=== PATIENT | male | born 1960 | race Two or more races ===

== ENCOUNTER 2021-09-20 21:52 | Inpatient (IN) | payer OTHER ==
[2021-09-20] MEDS ORDERED: ONDANSETRON 4 MG/2 ML VIAL IVPUSH ONE (22:01)
[2021-09-20] MEDS ORDERED: FAMOTIDINE 20 MG/50 ML IVPB 20 MG/50 ML MG IVPB ONE ×2 (22:01→22:12)
[2021-09-20] MEDS ORDERED: LACTATED RINGERS SOLUTION 1,000 ML/1,000 ML INFUS.BAG IV STA (22:01)
[2021-09-20] MEDS ORDERED: ONDANSETRON 4 MG/2 ML VIAL ONE (22:12)
[2021-09-20 22:48] LABS: MCH 37.8 pg (25.7-33.7); MEAN CELL VOLUME 81.9 fl (80-96); MEAN PLT VOLUME 9.8 fl (7.5-11.1); RBC 5.79 10^6/uL (4.00-5.60); RDW 15.1 % (11.9-15.9); WHITE BLOOD COUNT 13.2 10^3/uL (4.0-10.8)
[2021-09-20] MEDS ORDERED: ACETAMINOPHEN 1000 MG/100 ML BAG IVPB ONE (22:58)
[2021-09-20 23:00] LABS: ALBUMIN 4.8 g/dl (3.4-5.0); ALK PHOS 52 U/L (45-117); ANION GAP 16 MMOL/L (8-16); CALCIUM 7.5 mg/dl (8.5-10); CHLORIDE 86 mmol/L (98-107); CO2 21 mmol/L (21-32); CREATININE 0.7 mg/dl (0.55-1.3); SODIUM 123 mmol/L (136-145); TOT PROT 4.9 g/dl (6.4-8.2)
[2021-09-20 23:03] LABS: GLUCOSE,RANDOM 371 mg/dl (74-106)
[2021-09-20] MEDS ORDERED: ACETAMINOPHEN INJECTION 100 ML IVPB ONE (23:07)
[2021-09-20 23:10] LABS: MCHC 46.2 g/dl (32.0-35.9)
[2021-09-20 23:11] LABS: HEMATOCRIT 45.3 % (35.4-49); HEMOGLOBIN 16.9 G/dL (11.7-16.9)
[2021-09-20 23:23] LABS: PLATELET ESTIMATE ADEQUATE
[2021-09-21 02:17] LABS: EPI CELLS 15 /uL (0-25.1); HYALINE CASTS 6 /uL (0-3.1); URINE APPEARANCE CLEAR; URINE BACTERIA 2 /uL (0-1359); URINE BILIRUBIN NEGATIVE (NEGATIVE); URINE COLOR YELLOW; URINE GLUCOSE (UA) 2+ (NEGATIVE); URINE KETONE 3+ (NEGATIVE); URINE LEUK ESTERASE NEGATIVE (NEGATIVE); URINE NITRITE NEGATIVE (NEGATIVE); URINE PROTEIN 2+ (NEGATIVE); URINE RBC 20 /uL (0-23.9); URINE UROBILINOGEN 0.2 mg/dL (0.2-1.0); URINE WBC 7 /uL (0-25.8)
[2021-09-21 02:34] LABS: LACTIC ACID 2.7 mmol/L (0.4-2.0)
[2021-09-21 02:35] LABS: LIPASE 5567 U/L (73-393)
[2021-09-21] MEDS ORDERED: morphine CARPU-JECT 8 MG/1 ML DISP.SYRIN IVPUSH ONE (02:51)
[2021-09-21] MEDS ORDERED: LACTATED RINGERS SOLUTION 1,000 ML/1,000 ML INFUS.BAG IV STA (02:51)
[2021-09-21] MEDS ORDERED: SODIUM CHLORIDE 1,000 ML IV STA (02:52)
[2021-09-21 02:53] LABS: ACTIVATED PTT > 400.0 SECONDS (25.2-36.5); PROTHROMBIN TIME (PATIENT) > 230.00 SEC (9.7-13.0)
[2021-09-21 02:54] LABS: INR > 15.00 (0.83-1.09)
[2021-09-21] MEDS ORDERED: ONDANSETRON 4 MG/2 ML VIAL IVPUSH ONE (02:55)
[2021-09-21] MEDS ORDERED: morphine SULFATE 4 MG/ML VIAL ONE ×2 (02:57→07:17)
[2021-09-21] MEDS ORDERED: ONDANSETRON 4 MG/2 ML VIAL ONE ×2 (02:57→07:17)
[2021-09-21] MEDS ORDERED: INSULIN REGULAR HUMAN 100 UNITS/ML *VIAL* (FOR IVP) IVPUSH ONE (03:48)
[2021-09-21] MEDS ORDERED: DEXTROSE 50%-WATER - 25 GM/50 ML VIAL IVPUSH PRN ×2 (04:21→04:57)
[2021-09-21] MEDS ORDERED: morphine SULFATE 4 MG/ML VIAL IVPUSH PRN (04:56)
[2021-09-21] MEDS ORDERED: D5-NS + 40 MEQ KCL - 40 MEQ/1,000 ML INFUS.BAG IV SCH ×3 (05:00→17:13)
[2021-09-21] MEDS ORDERED: INSULIN REGULAR HUMAN 100 UNITS/ML *VIAL ONE (05:20)
[2021-09-21] MEDS: INSULIN REGULAR 100 UNITS in SODIUM CHLORIDE 99 ML IVPB SCH (05:32)
[2021-09-21] MEDS ORDERED: ONDANSETRON 4 MG/2 ML VIAL IVPUSH PRN (07:00)
[2021-09-21 07:11] LABS: TRIGLYCERIDES > 4000 mg/dL (0-150)
[2021-09-21 08:30] LABS: ALBUMIN 3.1 g/dl (3.4-5.0); ALK PHOS 64 U/L (45-117); ANION GAP 14 MMOL/L (8-16); BILIRUBIN,TOTAL 3.1 mg/dL (0.2-1); BLOOD UREA NITROGEN 12.8 mg/dL (7-18); CHLORIDE 91 mmol/L (98-107); CO2 20 mmol/L (21-32); CREATININE 1.7 mg/dL (0.55-1.3); GLUCOSE,RANDOM 567 mg/dL (74-106); SODIUM 125 mmol/L (136-145); TOT PROT 8.5 g/dl (6.4-8.2)
[2021-09-21 08:53] LABS: CREATININE 0.8 mg/dl (0.55-1.3); MAGNESIUM 2.4 mg/dL (1.8-2.4); PHOSPHOROUS 2.2 mg/dl (2.5-4.9)
[2021-09-21 09:05] LABS: LDL CHOLESTEROL (ONLY SJRH) 199 mg/dL (5-100)
[2021-09-21] MEDS ORDERED: HYDROmorphone HCL CARPU-JECT 1 MG/1 ML DISP.SYRIN IVPUSH ONE (09:09)
[2021-09-21] MEDS ORDERED: HYDROmorphone HCL/PF 1 MG/ML VIAL ONE (09:10)
[2021-09-21 09:16] LABS: CHOLESTEROL 299 mg/dL (50-200); HDL CHOLESTEROL 27 mg/dL (40-60)
[2021-09-21 09:59] LABS: CALCIUM 6.4 mg/dl (8.5-10)
[2021-09-21] MEDS: HYDROmorphone HCl 2 MG/ML VIAL IVPB PRN ×2 (12:51→17:05)
[2021-09-21] MEDS: MUPIROCIN 2% TOPICAL OINTMENT FOR DECOLONIZATION NS SCH ×2 (13:08→21:21)
[2021-09-21] MEDS ORDERED: SODIUM CHLORIDE 1,000 ML IV SCH (13:15)
[2021-09-21] MEDS ORDERED: PANTOPRAZOLE SODIUM 40 MG VIAL IVPUSH ONE (13:18)
[2021-09-21] MEDS: HEPARIN NA (PORCINE) 5,000 UNITS/ML 1ML VIAL SQ SCH ×2 (13:45→21:20)
[2021-09-21] MEDS ORDERED: DEXTROSE 5%-NORMAL SALINE 1,000 ML IV SCH (17:00)
[2021-09-21] MEDS ORDERED: MELATONIN 5 MG TABLETS PO PRN (18:28)
[2021-09-21 18:35] LABS: CHLORIDE 106 mmol/L (98-107); SODIUM 138 mmol/L (136-145)
[2021-09-21 18:37] LABS: ANION GAP 9 MMOL/L (8-16); BLOOD UREA NITROGEN 12.6 mg/dL (7-18); CO2 22 mmol/L (21-32); GLUCOSE,RANDOM 220 mg/dL (74-106)
[2021-09-21 18:41] LABS: CREATININE 1.1 mg/dL (0.55-1.3)
[2021-09-21] MEDS ORDERED: D5-LR+20 MEQ KCL - 20 MEQ/1,000 ML INFUS.BAG IV SCH ×2 (19:15→19:30)
[2021-09-21 19:47] LABS: CALCIUM 5.9 mg/dL (8.5-10.1); TRIGLYCERIDES 1617 mg/dL (0-150)
[2021-09-21] MEDS ORDERED: CALCIUM GLUC IN NACL, ISO-OSM 1 GM/50 ML BAG IVPB ONE (20:02)
[2021-09-21] MEDS: D5-LR+20 MEQ KCL - 20 MEQ/1,000 ML INFUS.BAG IV SCH (20:05)
[2021-09-21] MEDS: HYDROmorphone HCl 2 MG/ML VIAL IVPUSH PRN (20:06)
[2021-09-21] MEDS: CHLORHEXIDINE GLUCONATE 4% CLEANSER FOR DECOLONIZATION TP SCH (21:20)
[2021-09-21 23:34] LABS: CHLORIDE 108 mmol/L (98-107); SODIUM 138 mmol/L (136-145)
[2021-09-21 23:36] LABS: ANION GAP 8 MMOL/L (8-16); BLOOD UREA NITROGEN 15.9 mg/dL (7-18); CO2 22 mmol/L (21-32); GLUCOSE,RANDOM 194 mg/dL (74-106); MAGNESIUM 1.6 mg/dL (1.8-2.4)
[2021-09-21 23:52] LABS: CALCIUM 6.3 mg/dL (8.5-10.1)
[2021-09-22] MEDS ORDERED: CALCIUM GLUC IN NACL, ISO-OSM 1 GM/50 ML BAG IVPB ONE ×2 (00:03→00:31)
[2021-09-22] MEDS ORDERED: MAGNESIUM 2GM/50ML STERILE WATER IVPB IVPB ONE (00:15)
[2021-09-22] MEDS: HYDROmorphone HCl 2 MG/ML VIAL IVPUSH PRN ×4 (02:49→20:05)
[2021-09-22] MEDS: D5-LR+20 MEQ KCL - 20 MEQ/1,000 ML INFUS.BAG IV SCH ×2 (04:14→22:10)
[2021-09-22] MEDS: INSULIN REGULAR 100 UNITS in SODIUM CHLORIDE 99 ML IVPB SCH ×2 (05:22→14:59)
[2021-09-22] MEDS: HEPARIN NA (PORCINE) 5,000 UNITS/ML 1ML VIAL SQ SCH ×3 (05:22→22:10)
[2021-09-22 06:29] LABS: HEMATOCRIT 43.5 % (35.4-49); HEMOGLOBIN 14.9 GM/dL (11.7-16.9); MCH 28.6 pg (25.7-33.7); MCHC 34.3 g/dl (32.0-35.9); MEAN CELL VOLUME 83.5 fl (80-96); MEAN PLT VOLUME 9.2 fl (7.5-11.1); PLATELET COUNT 155 10^3/uL (134-434); RBC 5.21 M/mm3 (4.00-5.60); RDW 15.4 % (11.9-15.9); WHITE BLOOD COUNT 8.9 K/mm3 (4.0-10.0)
[2021-09-22 06:47] LABS: CHLORIDE 108 mmol/L (98-107); SODIUM 139 mmol/L (136-145)
[2021-09-22 06:49] LABS: LIPASE 863 U/L (73-393)
[2021-09-22 06:50] LABS: ALBUMIN 2.5 g/dl (3.4-5.0); ANION GAP 6 MMOL/L (8-16); BLOOD UREA NITROGEN 14.1 mg/dL (7-18); CO2 25 mmol/L (21-32); GLUCOSE,RANDOM 182 mg/dL (74-106); MAGNESIUM 2.1 mg/dL (1.8-2.4)
[2021-09-22 06:52] LABS: TRIGLYCERIDES 908 mg/dL (0-150)
[2021-09-22 06:53] LABS: PHOSPHOROUS 1.3 mg/dL (2.5-4.9); SGOT/AST 30 U/L (15-37)
[2021-09-22 06:54] LABS: BILIRUBIN,TOTAL 0.6 mg/dL (0.2-1)
[2021-09-22 06:55] LABS: ALK PHOS 44 U/L (45-117)
[2021-09-22 07:09] LABS: INR 1.44 (0.83-1.09); PROTHROMBIN TIME (PATIENT) 16.6 SEC (9.7-13.0)
[2021-09-22 07:24] LABS: CALCIUM 6.9 mg/dL (8.5-10.1); SGPT/ALT 29 U/L (13-61); TOT PROT 5.8 g/dl (6.4-8.2)
[2021-09-22] MEDS ORDERED: SODIUM PHOSPHATE - 40 MM in SODIUM CHLORIDE 500 ML IVPB ONE (08:00)
[2021-09-22] MEDS: PANTOPRAZOLE SODIUM 40 MG VIAL IVPUSH SCH (10:36)
[2021-09-22] MEDS: MUPIROCIN 2% TOPICAL OINTMENT FOR DECOLONIZATION NS SCH ×2 (10:36→22:10)
[2021-09-22] MEDS: ACETAMINOPHEN 1000 MG/100 ML BAG IVPB PRN (11:32)
[2021-09-22 11:59] LABS: EPI CELLS 7 /uL (0-25.1); HYALINE CASTS 5 /uL (0-3.1); PH,URINE 5.5 (5.0-8.0); URINE APPEARANCE CLEAR; URINE BACTERIA 8 /uL (0-1359); URINE BILIRUBIN NEGATIVE (NEGATIVE); URINE COLOR DK YELLOW; URINE GLUCOSE (UA) 1+ (NEGATIVE); URINE KETONE 1+ (NEGATIVE); URINE LEUK ESTERASE NEGATIVE (NEGATIVE); URINE NITRITE NEGATIVE (NEGATIVE); URINE PROTEIN 2+ (NEGATIVE); URINE UROBILINOGEN 0.2 mg/dL (0.2-1.0); URINE WBC 9 /uL (0-25.8)
[2021-09-22 12:02] LABS: URINE RBC 30.3 /uL (0-23.9)
[2021-09-22 12:19] LABS: COCAINE, UR NEGATIVE (NEGATIVE); METHADONE, UR NEGATIVE (NEGATIVE); OPIATES, URI POSITIVE (NEGATIVE); PHENCYCLIDINE,URINE NEGATIVE (NEGATIVE); URINE AMPHETAMINES NEGATIVE (NEGATIVE); URINE BARBITURATES NEGATIVE (NEGATIVE); URINE BENZODIAZEPINES NEGATIVE (NEGATIVE)
[2021-09-22] MEDS ORDERED: D5-LR+20 MEQ KCL - 20 MEQ/1,000 ML INFUS.BAG IV SCH ×2 (16:00→21:06)
[2021-09-22] MEDS ORDERED: DEXTROSE 50%-WATER - 25 GM/50 ML VIAL IVPUSH PRN (18:08)
[2021-09-22 18:41] LABS: CALCIUM 7.4 mg/dL (8.5-10.1)
[2021-09-22 18:42] LABS: MAGNESIUM 2.3 mg/dL (1.8-2.4)
[2021-09-22 18:45] LABS: PHOSPHOROUS 2.3 mg/dL (2.5-4.9)
[2021-09-22] MEDS ORDERED: NAPH,MB-DB/K PH,MBDB POWDER PACKET PO ONE ×2 (18:47→21:01)
[2021-09-22] MEDS ORDERED: DEXTROSE 50%-WATER 25 GM/50 ML DISP.SYRIN ONE (21:08)
[2021-09-22] MEDS: CHLORHEXIDINE GLUCONATE 4% CLEANSER FOR DECOLONIZATION TP SCH (22:11)
[2021-09-23] MEDS: D5-LR+20 MEQ KCL - 20 MEQ/1,000 ML INFUS.BAG IV SCH ×5 (02:14→22:24)
[2021-09-23] MEDS: INSULIN REGULAR 100 UNITS in SODIUM CHLORIDE 99 ML IVPB SCH ×2 (05:39→08:12)
[2021-09-23] MEDS: HEPARIN NA (PORCINE) 5,000 UNITS/ML 1ML VIAL SQ SCH ×3 (05:40→21:44)
[2021-09-23] MEDS: HYDROmorphone HCl 2 MG/ML VIAL IVPUSH PRN (06:57)
[2021-09-23 07:49] LABS: HEMATOCRIT 38.1 % (35.4-49); HEMOGLOBIN 12.6 GM/dL (11.7-16.9); MCH 27.9 pg (25.7-33.7); MCHC 33.2 g/dl (32.0-35.9); MEAN CELL VOLUME 83.8 fl (80-96); MEAN PLT VOLUME 9.3 fl (7.5-11.1); PLATELET COUNT 141 10^3/uL (134-434); RBC 4.54 M/mm3 (4.00-5.60); RDW 15.3 % (11.9-15.9)
[2021-09-23 08:02] LABS: CALCIUM 7.7 mg/dL (8.5-10.1)
[2021-09-23 08:03] LABS: BLOOD UREA NITROGEN 8.2 mg/dL (7-18); MAGNESIUM 2.1 mg/dL (1.8-2.4)
[2021-09-23 08:04] LABS: CREATININE 0.7 mg/dL (0.55-1.3)
[2021-09-23 08:05] LABS: PHOSPHOROUS 1.4 mg/dL (2.5-4.9)
[2021-09-23] MEDS: PANTOPRAZOLE SODIUM 40 MG VIAL IVPUSH SCH (09:08)
[2021-09-23] MEDS: MUPIROCIN 2% TOPICAL OINTMENT FOR DECOLONIZATION NS SCH ×2 (09:09→21:38)
[2021-09-23] MEDS ORDERED: SODIUM PHOSPHATE - 30 MM in SODIUM CHLORIDE 250 ML IVPB ONE (09:10)
[2021-09-23] MEDS ORDERED: POTASSIUM PHOSPHATE 30 MM in SODIUM CHLORIDE 250 ML IVPB ONE (09:13)
[2021-09-23] MEDS ORDERED: FENOFIBRIC ACID 135 MG CAP PO SCH ×2 (12:00→13:45)
[2021-09-23] MEDS: INSULIN SLIDING SCALE (NOVOLOG) 1 VIAL SQ SCH ×2 (17:08→21:45)
[2021-09-23] MEDS: ACETAMINOPHEN 1000 MG/100 ML BAG IVPB PRN (20:14)
[2021-09-23] MEDS: CHLORHEXIDINE GLUCONATE 4% CLEANSER FOR DECOLONIZATION TP SCH (21:44)
[2021-09-23] MEDS ORDERED: ATORVASTATIN CA 40 MG TABLET (FP) PO SCH (22:00)
[2021-09-23] MEDS ORDERED: DEXTROSE 50%-WATER - 25 GM/50 ML VIAL IVPUSH PRN (22:08)
[2021-09-23] MEDS: MELATONIN 5 MG TABLETS PO PRN (22:29)
[2021-09-24] MEDS: ACETAMINOPHEN 1000 MG/100 ML BAG IVPB PRN ×4 (01:02→21:09)
[2021-09-24] MEDS: D5-LR+20 MEQ KCL - 20 MEQ/1,000 ML INFUS.BAG IV SCH ×4 (01:03→11:08)
[2021-09-24] MEDS: ONDANSETRON 4 MG/2 ML VIAL IVPUSH PRN ×2 (04:09→08:04)
[2021-09-24] MEDS: HEPARIN NA (PORCINE) 5,000 UNITS/ML 1ML VIAL SQ SCH ×3 (05:58→21:09)
[2021-09-24] MEDS: INSULIN SLIDING SCALE (NOVOLOG) 1 VIAL SQ SCH ×4 (06:01→23:49)
[2021-09-24 09:01] LABS: BASO % 0.2 % (0-2.0); EOS % 0.6 % (0-4.5); HEMATOCRIT 35.9 % (35.4-49); HEMOGLOBIN 11.9 GM/dL (11.7-16.9); LYMPH % 9.7 % (8-40); MCH 28.1 pg (25.7-33.7); MCHC 33.3 g/dl (32.0-35.9); MEAN CELL VOLUME 84.6 fl (80-96); MEAN PLT VOLUME 8.8 fl (7.5-11.1); MONO % 5.5 % (3.8-10.2); PLATELET COUNT 156 10^3/uL (134-434); RBC 4.24 M/mm3 (4.00-5.60); WHITE BLOOD COUNT 9.9 K/mm3 (4.0-10.0)
[2021-09-24 09:21] LABS: CALCIUM 8.2 mg/dL (8.5-10.1)
[2021-09-24 09:22] LABS: ALBUMIN 2.4 g/dl (3.4-5.0); BLOOD UREA NITROGEN 7.4 mg/dL (7-18)
[2021-09-24] MEDS: FENOFIBRIC ACID 135 MG CAP PO SCH (09:23)
[2021-09-24] MEDS: PANTOPRAZOLE SODIUM 40 MG VIAL IVPUSH SCH (09:24)
[2021-09-24 09:25] LABS: CREATININE 0.7 mg/dL (0.55-1.3)
[2021-09-24 09:26] LABS: PHOSPHOROUS 2.5 mg/dL (2.5-4.9)
[2021-09-24 09:28] LABS: BILIRUBIN,TOTAL 0.9 mg/dL (0.2-1); TOT PROT 5.3 g/dl (6.4-8.2)
[2021-09-24] MEDS ORDERED: MUPIROCIN 2% TOPICAL OINTMENT FOR DECOLONIZATION NS SCH (10:00)
[2021-09-24] MEDS: SIMETHICONE 80 MG TAB.CHEW (FP) PO PRN ×2 (13:15→18:00)
[2021-09-24] MEDS: ATORVASTATIN CA 40 MG TABLET (FP) PO SCH (21:09)
[2021-09-24] MEDS ORDERED: CHLORHEXIDINE GLUCONATE 4% CLEANSER FOR DECOLONIZATION TP SCH (22:00)
[2021-09-25] MEDS: HEPARIN NA (PORCINE) 5,000 UNITS/ML 1ML VIAL SQ SCH ×3 (06:07→21:11)
[2021-09-25] MEDS: INSULIN SLIDING SCALE (NOVOLOG) 1 VIAL SQ SCH ×4 (06:08→21:11)
[2021-09-25 08:17] LABS: HEMATOCRIT 34.9 % (35.4-49); HEMOGLOBIN 11.9 GM/dL (11.7-16.9); MCH 28.3 pg (25.7-33.7); MEAN CELL VOLUME 83.2 fl (80-96); MEAN PLT VOLUME 8.4 fl (7.5-11.1); PLATELET COUNT 170 10^3/uL (134-434); RDW 15.2 % (11.9-15.9); WHITE BLOOD COUNT 8.9 K/mm3 (4.0-10.0)
[2021-09-25 08:43] LABS: ALBUMIN 2.6 g/dl (3.4-5.0); BLOOD UREA NITROGEN 12.6 mg/dL (7-18); CALCIUM 8.4 mg/dL (8.5-10.1); MAGNESIUM 1.9 mg/dL (1.8-2.4)
[2021-09-25 08:46] LABS: CREATININE 0.7 mg/dL (0.55-1.3)
[2021-09-25 08:48] LABS: BILIRUBIN,TOTAL 1.2 mg/dL (0.2-1); TOT PROT 5.7 g/dl (6.4-8.2)
[2021-09-25] MEDS: PANTOPRAZOLE SODIUM 40 MG VIAL IVPUSH SCH (10:12)
[2021-09-25] MEDS: FENOFIBRIC ACID 135 MG CAP PO SCH (10:12)
[2021-09-25 10:59] LABS: ANISOCYTOSIS 0; MACROCYTOSIS 0; PLATELET ESTIMATE NORMAL
[2021-09-25] MEDS: SIMETHICONE 80 MG TAB.CHEW (FP) PO PRN (21:01)
[2021-09-25] MEDS: ATORVASTATIN CA 40 MG TABLET (FP) PO SCH (21:02)
[2021-09-25] MEDS: MELATONIN 5 MG TABLETS PO PRN (21:02)
[2021-09-26] MEDS: HEPARIN NA (PORCINE) 5,000 UNITS/ML 1ML VIAL SQ SCH ×2 (06:06→13:25)
[2021-09-26] MEDS: SIMETHICONE 80 MG TAB.CHEW (FP) PO PRN (06:06)
[2021-09-26] MEDS: INSULIN SLIDING SCALE (NOVOLOG) 1 VIAL SQ SCH ×3 (06:13→17:15)
[2021-09-26] MEDS: FENOFIBRIC ACID 135 MG CAP PO SCH (09:55)
[2021-09-26 10:48] LABS: HEMATOCRIT 34.4 % (35.4-49); HEMOGLOBIN 11.8 GM/dL (11.7-16.9); MCH 28.5 pg (25.7-33.7); MCHC 34.3 g/dl (32.0-35.9); MEAN PLT VOLUME 8.5 fl (7.5-11.1); PLATELET COUNT 178 10^3/uL (134-434); RBC 4.14 M/mm3 (4.00-5.60); RDW 14.8 % (11.9-15.9); WHITE BLOOD COUNT 8.2 K/mm3 (4.0-10.0)
[2021-09-26 11:13] LABS: BLOOD UREA NITROGEN 13.6 mg/dL (7-18); CALCIUM 8.5 mg/dL (8.5-10.1)
[2021-09-26 11:14] LABS: ALBUMIN 2.5 g/dl (3.4-5.0); ANISOCYTOSIS 0; HELMET CELLS 0; HOWELL-JOLLY BODIES 0; MACROCYTOSIS 0; MAGNESIUM 2.2 mg/dL (1.8-2.4); OVALOCYTE 0; ROULEAU 0; SICKELED CELLS 0; TARGET CELLS 0; TEAR DROP CELLS 0; TOXIC GRANULATION 0
[2021-09-26 11:17] LABS: CREATININE 0.8 mg/dL (0.55-1.3)
[2021-09-26 11:18] LABS: BILIRUBIN,TOTAL 0.7 mg/dL (0.2-1); TOT PROT 5.6 g/dl (6.4-8.2)
[2021-09-26 11:21] LABS: CHOLESTEROL 193 mg/dL (50-200)
[2021-09-26 11:22] LABS: LDL CHOLESTEROL (ONLY SJRH) 104 mg/dL (5-100)
[2021-09-26 11:23] LABS: TRIGLYCERIDES 386 mg/dL (0-150)
[2021-09-26 11:25] LABS: HDL CHOLESTEROL 15 mg/dL (40-60)
[2021-09-26 17:01] VITALS: BMI 29.4
[2021-09-26 18:22] VITALS: BP 137/70; PULSE 84; TEMP 99
== END 2021-09-26 19:42 | disposition home or self-care (01) | DRG 642 ==
LOC: FER 21:52 → JICU 09-21 12:15 → J5S 09-23 21:56
PROVIDERS: ADMIT Internal Medicine Pulmonary Disease; ATTEND Nurse Practitioner Acute Care
DX: E78.1 Pure hyperglyceridemia (principal); K85.90 Acute pancreatitis without necrosis or infection, unspecified; E87.1 Hypo-osmolality and hyponatremia; J90 Pleural effusion, not elsewhere classified; J98.11 Atelectasis; K56.7 Ileus, unspecified; E11.9 Type 2 diabetes mellitus without complications; K44.9 Diaphragmatic hernia without obstruction or gangrene; Z91.14 Patient's other noncompliance with medication regimen
CPT/HCPCS: 36415; 71046-TC-FY; 74018-TC-FY; 74177-TC; 80048; 80053; 80061; 80307; 81003; 82150; 82330; 82962; 83036; 83605; 83690; 83735; 84100; 84443; 84478; 84484; 85025; 85027; 85610; 85730; 86140; 86664; 87086; 87496; 87804; 93005; 99285-25; C9803-CS; J1644; Q9967; U0003; U0005

== ENCOUNTER 2022-05-12 04:30 | Day surgery (SDC) | payer OTHER ==
[2022-05-05 11:53] VITALS: BMI 27.3
[2022-05-12 08:25] VITALS: TEMP 98
[2022-05-12 09:11] VITALS: BP 108/77; PULSE 87; RESP 17
== END 2022-05-12 09:30 | disposition home or self-care (01) ==
LOC: JASU-ENDO 04:30
PROVIDERS: ATTEND Internal Medicine Gastroenterology
PROC: 0DB98ZX Excision of Duodenum, Via Natural or Artificial Opening Endoscopic, Diagnostic (ICD-10-PCS; 2022-05-12)
PROC: 0DB68ZX Excision of Stomach, Via Natural or Artificial Opening Endoscopic, Diagnostic (ICD-10-PCS; 2022-05-12)
PROC: 0DB48ZX Excision of Esophagogastric Junction, Via Natural or Artificial Opening Endoscopic, Diagnostic (ICD-10-PCS; 2022-05-12)
PROC: 0DJD8ZZ Inspection of Lower Intestinal Tract, Via Natural or Artificial Opening Endoscopic (ICD-10-PCS; principal; 2022-05-12 08:00)
DX: Z12.11 Encounter for screening for malignant neoplasm of colon (principal); K57.30 Diverticulosis of large intestine without perforation or abscess without bleeding; K64.8 Other hemorrhoids; K29.50 Unspecified chronic gastritis without bleeding; K21.00 Gastro-esophageal reflux disease with esophagitis, without bleeding; K31.7 Polyp of stomach and duodenum; K44.9 Diaphragmatic hernia without obstruction or gangrene; K22.10 Ulcer of esophagus without bleeding
CPT/HCPCS: 82962; 88305-TC; 88342-TC